=== PATIENT | female | born 1940 | race Caucasian/White ===

== ENCOUNTER 2020-07-25 12:49 | Inpatient (IN) | payer OTHER ==
[2020-07-25 14:39] LABS: BASO % 0.3 % (0-2.0); EOS % 0.6 % (0-4.5); HEMATOCRIT 47.4 % (32.4-45.2); HEMOGLOBIN 15.6 GM/dL (10.7-15.3); LYMPH % 9.8 % (8-40); MCH 29.7 pg (25.7-33.7); MEAN PLT VOLUME 10.8 fl (7.5-11.1); MONO % 6.9 % (3.8-10.2); NEUT % 82.4 % (42.8-82.8); PLATELET COUNT 230 K/MM3 (134-434); RBC 5.26 M/mm3 (3.60-5.2); RDW 14.6 % (11.6-15.6); WHITE BLOOD COUNT 13.7 K/mm3 (4.0-10.0)
[2020-07-25 14:44] LABS: INR 1.05 (0.83-1.09); PROTHROMBIN TIME (PATIENT) 12.9 SEC (9.7-13.0)
[2020-07-25 14:47] LABS: ACTIVATED PTT 25.8 SECONDS (25.2-36.5)
[2020-07-25] MEDS ORDERED: LACTATED RINGERS SOLUTION 1000 ML INFUS.BAG IV ONE (14:51)
[2020-07-25 14:55] LABS: EPI CELLS >36 /uL (0-25.1); HYALINE CASTS 15 /uL (0-3.1); URINE APPEARANCE TURBID; URINE BACTERIA 147 /uL (0-1359); URINE BILIRUBIN NEGATIVE (NEGATIVE); URINE COLOR DK YELLOW; URINE GLUCOSE (UA) NEGATIVE (NEGATIVE); URINE KETONE NEGATIVE (NEGATIVE); URINE LEUK ESTERASE NEGATIVE (NEGATIVE); URINE NITRITE NEGATIVE (NEGATIVE); URINE PROTEIN 1+ (NEGATIVE); URINE WBC 32 /uL (0-25.8)
[2020-07-25 15:03] LABS: CHLORIDE 110 mmol/L (98-107); SODIUM 142 mmol/L (136-145)
[2020-07-25 15:08] LABS: CALCIUM 9.3 mg/dL (8.5-10.1); GLUCOSE,RANDOM 112 mg/dL (74-106)
[2020-07-25 15:10] LABS: ANION GAP 8 MMOL/L (8-16); BLOOD UREA NITROGEN 33.8 mg/dL (7-18); CO2 24 mmol/L (21-32); MAGNESIUM 2.6 mg/dL (1.8-2.4)
[2020-07-25 15:12] LABS: PHOSPHOROUS 3.4 mg/dL (2.5-4.9); SGOT/AST 19 U/L (15-37); SGPT/ALT 18 U/L (13-61)
[2020-07-25 15:13] LABS: BILIRUBIN,TOTAL 0.7 mg/dL (0.2-1); TOT PROT 6.9 g/dl (6.4-8.2)
[2020-07-25 15:14] LABS: ALK PHOS 64 U/L (45-117)
[2020-07-25 15:30] LABS: URINE RBC 42.9 /uL (0-23.9)
[2020-07-25] MEDS ORDERED: CEFTRIAXONE 1 GM in DEXTROSE 5%-WATER - 50 ML IVPB ONE (15:50)
[2020-07-25] MEDS ORDERED: CEFTRIAXONE 1 GM/50 ML BAG ONE (16:44)
[2020-07-25] MEDS ORDERED: LEVOTHYROXINE NA 100 MCG TABLET (FP) PO ONE (17:26)
[2020-07-25] MEDS ORDERED: LEVOTHYROXINE NA 25 MCG TABLET (FP) ONE ×2 (18:08→19:41)
[2020-07-25] MEDS ORDERED: LEVOTHYROXINE NA 25 MCG TABLET (FP) PO ONE (18:18)
[2020-07-25] MEDS ORDERED: ATORVASTATIN CA 80 MG TABLET (FP) PO SCH (22:00)
[2020-07-25] MEDS: SODIUM CHLORIDE 1,000 ML IV SCH (23:36)
[2020-07-26 02:14] VITALS: BMI 28.5
[2020-07-26] MEDS: LEVOTHYROXINE NA 125 MCG TABLET (FP) PO SCH (06:41)
[2020-07-26 08:21] LABS: BASO % 0.7 % (0-2.0); EOS % 2.5 % (0-4.5); HEMATOCRIT 40.4 % (32.4-45.2); HEMOGLOBIN 13.3 GM/dL (10.7-15.3); MCH 29.7 pg (25.7-33.7); MEAN PLT VOLUME 11.1 fl (7.5-11.1); MONO % 7.6 % (3.8-10.2); NEUT % 76.2 % (42.8-82.8); PLATELET COUNT 195 K/MM3 (134-434); RBC 4.49 M/mm3 (3.60-5.2); RDW 14.8 % (11.6-15.6); WHITE BLOOD COUNT 12.9 K/mm3 (4.0-10.0)
[2020-07-26] MEDS ORDERED: PNEUMOC 13-VAL CONJ-DIP CRM/PF 0.5 ML DISP.SYRIN IM ONE (08:30)
[2020-07-26 08:52] LABS: ALBUMIN 2.6 g/dl (3.4-5.0); CALCIUM 8.7 mg/dL (8.5-10.1); MAGNESIUM 2.2 mg/dL (1.8-2.4)
[2020-07-26 08:56] LABS: CREATININE 0.9 mg/dL (0.55-1.3); PHOSPHOROUS 2.8 mg/dL (2.5-4.9)
[2020-07-26 08:58] LABS: BILIRUBIN,TOTAL 0.9 mg/dL (0.2-1)
[2020-07-26] MEDS: ENOXAPARIN NA (PORCINE) 40 MG/0.4 ML DISP.SYRIN SQ SCH (11:18)
[2020-07-26] MEDS ORDERED: cefTRIAXone SODIUM 1 GM VIAL ONE (14:58)
[2020-07-26] MEDS ORDERED: DEXTROSE 5%-WATER - 50 ML IVPB ONE (14:58)
[2020-07-26] MEDS: SODIUM CHLORIDE 1,000 ML IV SCH (15:07)
[2020-07-26] MEDS: CEFTRIAXONE 1 GM in DEXTROSE 5%-WATER - 50 ML IVPB SCH (15:08)
[2020-07-26] MEDS: ATORVASTATIN CA 40 MG TABLET (FP) PO SCH (22:30)
[2020-07-26] MEDS: MELATONIN 1 MG TABLET PO SCH (22:30)
[2020-07-27] MEDS: LEVOTHYROXINE NA 125 MCG TABLET (FP) PO SCH (06:19)
[2020-07-27 08:18] LABS: BASO % 0.7 % (0-2.0); EOS % 3.7 % (0-4.5); HEMATOCRIT 38.6 % (32.4-45.2); HEMOGLOBIN 12.8 GM/dL (10.7-15.3); LYMPH % 18.1 % (8-40); MCH 29.6 pg (25.7-33.7); MCHC 33.1 g/dl (32.0-36.0); MEAN CELL VOLUME 89.5 fl (80-96); MEAN PLT VOLUME 10.4 fl (7.5-11.1); MONO % 8.4 % (3.8-10.2); NEUT % 69.1 % (42.8-82.8); PLATELET COUNT 171 K/MM3 (134-434); RBC 4.31 M/mm3 (3.60-5.2); RDW 14.2 % (11.6-15.6); WHITE BLOOD COUNT 8.8 K/mm3 (4.0-10.0)
[2020-07-27 08:42] LABS: ALBUMIN 2.3 g/dl (3.4-5.0); BLOOD UREA NITROGEN 24.2 mg/dL (7-18); CALCIUM 8.2 mg/dL (8.5-10.1)
[2020-07-27 08:43] LABS: MAGNESIUM 1.9 mg/dL (1.8-2.4)
[2020-07-27 08:46] LABS: CREATININE 0.8 mg/dL (0.55-1.3)
[2020-07-27 08:47] LABS: BILIRUBIN,TOTAL 0.5 mg/dL (0.2-1); TOT PROT 5.4 g/dl (6.4-8.2)
[2020-07-27] MEDS ORDERED: cefTRIAXone SODIUM 1 GM VIAL ONE (10:01)
[2020-07-27] MEDS ORDERED: DEXTROSE 5%-WATER - 50 ML IVPB ONE (10:01)
[2020-07-27] MEDS: CEFTRIAXONE 1 GM in DEXTROSE 5%-WATER - 50 ML IVPB SCH (10:15)
[2020-07-27] MEDS: ENOXAPARIN NA (PORCINE) 40 MG/0.4 ML DISP.SYRIN SQ SCH (10:16)
[2020-07-27] MEDS: SODIUM CHLORIDE 1,000 ML IV SCH ×3 (10:17→23:13)
[2020-07-27] MEDS: MELATONIN 1 MG TABLET PO SCH (21:47)
[2020-07-27] MEDS: ATORVASTATIN CA 40 MG TABLET (FP) PO SCH (21:47)
[2020-07-28] MEDS: LEVOTHYROXINE NA 125 MCG TABLET (FP) PO SCH (06:31)
[2020-07-28 08:44] LABS: HEMATOCRIT 39.8 % (32.4-45.2); HEMOGLOBIN 13.4 GM/dL (10.7-15.3); MCH 29.8 pg (25.7-33.7); MCHC 33.6 g/dl (32.0-36.0); MEAN CELL VOLUME 88.6 fl (80-96); MEAN PLT VOLUME 10.7 fl (7.5-11.1); PLATELET COUNT 180 K/MM3 (134-434); RDW 13.9 % (11.6-15.6); WHITE BLOOD COUNT 9.7 K/mm3 (4.0-10.0)
[2020-07-28 09:06] LABS: BLOOD UREA NITROGEN 18.5 mg/dL (7-18)
[2020-07-28 09:08] LABS: CALCIUM 8.8 mg/dL (8.5-10.1)
[2020-07-28 09:09] LABS: CREATININE 0.7 mg/dL (0.55-1.3)
[2020-07-28] MEDS ORDERED: cefTRIAXone SODIUM 1 GM VIAL ONE (09:39)
[2020-07-28] MEDS ORDERED: DEXTROSE 5%-WATER - 50 ML IVPB ONE (09:39)
[2020-07-28] MEDS: SODIUM CHLORIDE 1,000 ML IV SCH ×2 (09:42→20:22)
[2020-07-28] MEDS: ENOXAPARIN NA (PORCINE) 40 MG/0.4 ML DISP.SYRIN SQ SCH (09:42)
[2020-07-28] MEDS: CEFTRIAXONE 1 GM in DEXTROSE 5%-WATER - 50 ML IVPB SCH (09:42)
[2020-07-28] MEDS: ATORVASTATIN CA 40 MG TABLET (FP) PO SCH (21:44)
[2020-07-28] MEDS: MELATONIN 1 MG TABLET PO SCH (21:44)
[2020-07-29] MEDS: LEVOTHYROXINE NA 125 MCG TABLET (FP) PO SCH (06:18)
[2020-07-29 08:26] LABS: HEMATOCRIT 37.8 % (32.4-45.2); HEMOGLOBIN 12.6 GM/dL (10.7-15.3); MCH 29.9 pg (25.7-33.7); MCHC 33.4 g/dl (32.0-36.0); MEAN CELL VOLUME 89.4 fl (80-96); PLATELET COUNT 183 K/MM3 (134-434); RBC 4.23 M/mm3 (3.60-5.2); RDW 14.1 % (11.6-15.6); WHITE BLOOD COUNT 9.1 K/mm3 (4.0-10.0)
[2020-07-29] MEDS ORDERED: cefTRIAXone SODIUM 1 GM VIAL ONE (08:38)
[2020-07-29] MEDS ORDERED: DEXTROSE 5%-WATER - 50 ML IVPB ONE (08:39)
[2020-07-29 08:52] LABS: ALBUMIN 2.2 g/dl (3.4-5.0); BLOOD UREA NITROGEN 15.2 mg/dL (7-18); CALCIUM 8.2 mg/dL (8.5-10.1); MAGNESIUM 1.8 mg/dL (1.8-2.4)
[2020-07-29 08:56] LABS: CREATININE 0.6 mg/dL (0.55-1.3)
[2020-07-29 08:57] LABS: BILIRUBIN,TOTAL 0.4 mg/dL (0.2-1); TOT PROT 5.3 g/dl (6.4-8.2)
[2020-07-29] MEDS: CEFTRIAXONE 1 GM in DEXTROSE 5%-WATER - 50 ML IVPB SCH (09:01)
[2020-07-29] MEDS: ENOXAPARIN NA (PORCINE) 40 MG/0.4 ML DISP.SYRIN SQ SCH (09:01)
[2020-07-29] MEDS: SODIUM CHLORIDE 1,000 ML IV SCH (18:30)
[2020-07-29] MEDS: ATORVASTATIN CA 40 MG TABLET (FP) PO SCH (21:22)
[2020-07-29] MEDS: MELATONIN 1 MG TABLET PO SCH (21:23)
[2020-07-30] MEDS: LEVOTHYROXINE NA 125 MCG TABLET (FP) PO SCH (06:14)
[2020-07-30 08:31] LABS: HEMATOCRIT 39.7 % (32.4-45.2); HEMOGLOBIN 13.4 GM/dL (10.7-15.3); MCHC 33.7 g/dl (32.0-36.0); MEAN CELL VOLUME 89.1 fl (80-96); MEAN PLT VOLUME 10.6 fl (7.5-11.1); PLATELET COUNT 197 K/MM3 (134-434); RBC 4.46 M/mm3 (3.60-5.2); RDW 13.8 % (11.6-15.6); WHITE BLOOD COUNT 9.8 K/mm3 (4.0-10.0)
[2020-07-30 09:33] LABS: CALCIUM 8.5 mg/dL (8.5-10.1)
[2020-07-30 09:34] LABS: ALBUMIN 2.5 g/dl (3.4-5.0); BLOOD UREA NITROGEN 17.3 mg/dL (7-18); MAGNESIUM 1.9 mg/dL (1.8-2.4)
[2020-07-30 09:37] LABS: CREATININE 0.7 mg/dL (0.55-1.3)
[2020-07-30 09:38] LABS: BILIRUBIN,TOTAL 0.4 mg/dL (0.2-1); TOT PROT 5.7 g/dl (6.4-8.2)
[2020-07-30] MEDS ORDERED: cefTRIAXone SODIUM 1 GM VIAL ONE (09:47)
[2020-07-30] MEDS ORDERED: DEXTROSE 5%-WATER - 50 ML IVPB ONE (09:47)
[2020-07-30] MEDS: ENOXAPARIN NA (PORCINE) 40 MG/0.4 ML DISP.SYRIN SQ SCH (09:59)
[2020-07-30] MEDS: CEFTRIAXONE 1 GM in DEXTROSE 5%-WATER - 50 ML IVPB SCH ×3 (09:59→13:22)
[2020-07-30] MEDS: SODIUM CHLORIDE 1,000 ML IV SCH (13:20)
[2020-07-30] MEDS ORDERED: LIDOCAINE HCL 2% (50ML VIAL) SQ ONE (16:58)
[2020-07-30] MEDS ORDERED: LIDOCAINE HCL 1%, 10 MG/ML (20ML VIAL) ONE (17:28)
[2020-07-30 19:41] LABS: BF WBC & OTHER NUCLEATED CELLS 1776 /mm3
[2020-07-30 20:01] LABS: BODY FLUID MONOCYTE 7 %
[2020-07-30] MEDS: APIXABAN 5 MG TABLET PO SCH (22:48)
[2020-07-30] MEDS: MELATONIN 1 MG TABLET PO SCH (22:49)
[2020-07-30] MEDS: ATORVASTATIN CA 40 MG TABLET (FP) PO SCH (22:50)
[2020-07-31] MEDS: LEVOTHYROXINE NA 125 MCG TABLET (FP) PO SCH (06:16)
[2020-07-31 08:27] LABS: HEMATOCRIT 38.5 % (32.4-45.2); HEMOGLOBIN 13.1 GM/dL (10.7-15.3); MCH 30.2 pg (25.7-33.7); MEAN CELL VOLUME 88.6 fl (80-96); MEAN PLT VOLUME 10.8 fl (7.5-11.1); PLATELET COUNT 220 K/MM3 (134-434); RBC 4.35 M/mm3 (3.60-5.2); RDW 14.1 % (11.6-15.6); WHITE BLOOD COUNT 9.9 K/mm3 (4.0-10.0)
[2020-07-31 08:41] LABS: CALCIUM 8.2 mg/dL (8.5-10.1)
[2020-07-31 08:42] LABS: BLOOD UREA NITROGEN 20.3 mg/dL (7-18)
[2020-07-31 08:45] LABS: CREATININE 0.7 mg/dL (0.55-1.3)
[2020-07-31] MEDS ORDERED: DEXTROSE 5%-WATER 100 ML IVPB ONE (09:10)
[2020-07-31] MEDS: CEFTRIAXONE 2 GM in DEXTROSE 5%-WATER 2 GM/100 ML BAG IVPB SCH (09:43)
[2020-07-31] MEDS: APIXABAN 5 MG TABLET PO SCH ×2 (09:43→21:07)
[2020-07-31] MEDS: SODIUM CHLORIDE 1,000 ML IV SCH (09:56)
[2020-07-31] MEDS: ATORVASTATIN CA 40 MG TABLET (FP) PO SCH (21:07)
[2020-07-31] MEDS: MELATONIN 1 MG TABLET PO SCH (21:07)
[2020-08-01] MEDS: LEVOTHYROXINE NA 125 MCG TABLET (FP) PO SCH (06:55)
[2020-08-01 07:48] LABS: HEMATOCRIT 36.5 % (32.4-45.2); HEMOGLOBIN 12.4 GM/dL (10.7-15.3); MCH 29.9 pg (25.7-33.7); MCHC 34.1 g/dl (32.0-36.0); MEAN CELL VOLUME 87.7 fl (80-96); MEAN PLT VOLUME 10.4 fl (7.5-11.1); PLATELET COUNT 240 K/MM3 (134-434); RBC 4.16 M/mm3 (3.60-5.2); RDW 13.7 % (11.6-15.6); WHITE BLOOD COUNT 10.4 K/mm3 (4.0-10.0)
[2020-08-01 07:52] LABS: CALCIUM 8.2 mg/dL (8.5-10.1)
[2020-08-01 07:53] LABS: BLOOD UREA NITROGEN 20.2 mg/dL (7-18)
[2020-08-01 07:56] LABS: CREATININE 0.7 mg/dL (0.55-1.3)
[2020-08-01] MEDS ORDERED: DEXTROSE 5%-WATER 100 ML IVPB ONE (09:54)
[2020-08-01] MEDS: APIXABAN 5 MG TABLET PO SCH ×2 (10:17→22:09)
[2020-08-01] MEDS: CEFTRIAXONE 2 GM in DEXTROSE 5%-WATER 2 GM/100 ML BAG IVPB SCH (10:17)
[2020-08-01] MEDS: ATORVASTATIN CA 40 MG TABLET (FP) PO SCH (22:09)
[2020-08-01] MEDS: MELATONIN 1 MG TABLET PO SCH (22:12)
[2020-08-02] MEDS: LEVOTHYROXINE NA 125 MCG TABLET (FP) PO SCH (06:02)
[2020-08-02 08:44] LABS: BASO % 0.7 % (0-2.0); EOS % 2.7 % (0-4.5); HEMATOCRIT 37.3 % (32.4-45.2); HEMOGLOBIN 12.6 GM/dL (10.7-15.3); LYMPH % 14.6 % (8-40); MCH 30.2 pg (25.7-33.7); MCHC 33.6 g/dl (32.0-36.0); MEAN CELL VOLUME 89.7 fl (80-96); MEAN PLT VOLUME 10.5 fl (7.5-11.1); MONO % 6.5 % (3.8-10.2); NEUT % 75.5 % (42.8-82.8); PLATELET COUNT 241 K/MM3 (134-434); RBC 4.17 M/mm3 (3.60-5.2); RDW 14.1 % (11.6-15.6); WHITE BLOOD COUNT 9.7 K/mm3 (4.0-10.0)
[2020-08-02] MEDS ORDERED: PT OWN MED DRAWER 7, Y5N ONE (08:59)
[2020-08-02] MEDS ORDERED: DEXTROSE 5%-WATER 100 ML IVPB ONE (09:00)
[2020-08-02 09:02] LABS: CALCIUM 8.6 mg/dL (8.5-10.1); MAGNESIUM 2.2 mg/dL (1.8-2.4)
[2020-08-02 09:03] LABS: BLOOD UREA NITROGEN 20.4 mg/dL (7-18)
[2020-08-02 09:06] LABS: CREATININE 0.8 mg/dL (0.55-1.3)
[2020-08-02] MEDS: CEFTRIAXONE 2 GM in DEXTROSE 5%-WATER 2 GM/100 ML BAG IVPB SCH (09:19)
[2020-08-02] MEDS: APIXABAN 5 MG TABLET PO SCH ×2 (09:20→21:10)
[2020-08-02] MEDS: ATORVASTATIN CA 40 MG TABLET (FP) PO SCH (21:10)
[2020-08-02] MEDS: MELATONIN 1 MG TABLET PO SCH (21:11)
[2020-08-03] MEDS: LEVOTHYROXINE NA 125 MCG TABLET (FP) PO SCH (06:25)
[2020-08-03 08:32] LABS: HEMATOCRIT 36.4 % (32.4-45.2); HEMOGLOBIN 12.4 GM/dL (10.7-15.3); MCH 30.1 pg (25.7-33.7); MCHC 34.1 g/dl (32.0-36.0); MEAN CELL VOLUME 88.4 fl (80-96); PLATELET COUNT 274 K/MM3 (134-434); RBC 4.12 M/mm3 (3.60-5.2); RDW 13.9 % (11.6-15.6); WHITE BLOOD COUNT 11.2 K/mm3 (4.0-10.0)
[2020-08-03 08:50] LABS: CALCIUM 8.4 mg/dL (8.5-10.1)
[2020-08-03 08:51] LABS: BLOOD UREA NITROGEN 21.2 mg/dL (7-18); MAGNESIUM 2.1 mg/dL (1.8-2.4)
[2020-08-03 08:54] LABS: CREATININE 0.7 mg/dL (0.55-1.3)
[2020-08-03] MEDS ORDERED: DEXTROSE 5%-WATER 100 ML IVPB ONE (09:12)
[2020-08-03] MEDS: APIXABAN 5 MG TABLET PO SCH ×2 (09:23→21:47)
[2020-08-03] MEDS: CEFTRIAXONE 2 GM in DEXTROSE 5%-WATER 2 GM/100 ML BAG IVPB SCH (09:24)
[2020-08-03] MEDS: MELATONIN 1 MG TABLET PO SCH (21:47)
[2020-08-03] MEDS: ATORVASTATIN CA 40 MG TABLET (FP) PO SCH (21:48)
[2020-08-04 02:09] LABS: SARS-CoV-2 NAA Not Detected (Not Detected)
[2020-08-04 02:51] VITALS: PULSE 94
[2020-08-04] MEDS: LEVOTHYROXINE NA 125 MCG TABLET (FP) PO SCH (06:07)
[2020-08-04 07:52] LABS: BASO % 0.9 % (0-2.0); EOS % 1.4 % (0-4.5); HEMATOCRIT 34.9 % (32.4-45.2); HEMOGLOBIN 11.8 GM/dL (10.7-15.3); LYMPH % 15.2 % (8-40); MCH 29.8 pg (25.7-33.7); MCHC 33.9 g/dl (32.0-36.0); MEAN CELL VOLUME 87.9 fl (80-96); MEAN PLT VOLUME 10.1 fl (7.5-11.1); MONO % 8.8 % (3.8-10.2); NEUT % 73.7 % (42.8-82.8); PLATELET COUNT 274 K/MM3 (134-434); RBC 3.97 M/mm3 (3.60-5.2); RDW 13.8 % (11.6-15.6); WHITE BLOOD COUNT 11.4 K/mm3 (4.0-10.0)
[2020-08-04 08:10] LABS: CALCIUM 8.2 mg/dL (8.5-10.1)
[2020-08-04 08:14] LABS: CREATININE 0.8 mg/dL (0.55-1.3)
[2020-08-04] MEDS ORDERED: DEXTROSE 5%-WATER 100 ML IVPB ONE (09:03)
[2020-08-04] MEDS: CEFTRIAXONE 2 GM in DEXTROSE 5%-WATER 2 GM/100 ML BAG IVPB SCH (09:18)
[2020-08-04] MEDS: APIXABAN 5 MG TABLET PO SCH (09:18)
[2020-08-04 14:48] VITALS: BP 127/70; TEMP 99.4
[2020-08-06] MEDS ORDERED: APIXABAN 5 MG TABLET PO SCH (22:00)
== END 2020-08-04 19:01 | DRG 884 ==
LOC: JER 12:49 → JERBED 16:41 → J6S 07-26 00:19
PROVIDERS: ADMIT Internal Medicine; ATTEND Internal Medicine
PROC: 0S9D3ZX Drainage of Left Knee Joint, Percutaneous Approach, Diagnostic (ICD-10-PCS; principal; 2020-07-30)
DX: F03.90 Unspecified dementia, unspecified severity, without behavioral disturbance, psychotic disturbance, mood disturbance, and anxiety (principal); I82.4Z2 Acute embolism and thrombosis of unspecified deep veins of left distal lower extremity; R78.81 Bacteremia; E03.9 Hypothyroidism, unspecified; E78.5 Hyperlipidemia, unspecified; R62.7 Adult failure to thrive; R53.1 Weakness; L89.151 Pressure ulcer of sacral region, stage 1; D72.829 Elevated white blood cell count, unspecified; M71.22 Synovial cyst of popliteal space [Baker], left knee
CPT/HCPCS: 36415; 70450-TC; 71045-TC-FY; 72125-TC; 73070-TC-LT-FY; 73523-TC-FY; 73560-TC-LT-FY; 80048; 80053; 81003; 82550; 82607; 83735; 84100; 84439; 84443; 84484; 85025; 85027; 85610; 85730; 87040; 87070; 87075; 87077; 87086; 87205; 90670; 93005; 93010; 93306-TC; 93970-TC; 93971-LT; 97116-GP; 97161-GP; 99285-25; C9803; U0003; U0005